=== PATIENT | male | born 2000 | race Two or more races ===

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

== ENCOUNTER 2021-06-16 20:21 | Emergency (ER) | payer OTHER, SELFPAY ==
[2021-06-16 20:23] VITALS: BP 138/82; PULSE 66; RESP 17; TEMP 36.8; O2SAT 98; BMI 32.0
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
[2021-06-16 21:51] VITALS: BP 111/75; PULSE 78; RESP 18; TEMP 36.8; O2SAT 98
== END 2021-06-16 21:56 | disposition home or self-care (01) ==
PROVIDERS: Emergency Provider Emergency Medicine
DX: S63.502A Unspecified sprain of left wrist, initial encounter (principal); V03.09XA Pedestrian with other conveyance injured in collision with car, pick-up truck or van in nontraffic accident, initial encounter; Y92.414 Local residential or business street as the place of occurrence of the external cause; Y93.55 Activity, bike riding
CPT/HCPCS: 71045; 72170; 73090; 73110; 99282

== ENCOUNTER 2021-08-07 18:00 | Emergency (ER) | payer OTHER, SELFPAY ==
[2021-08-07 18:01] VITALS: BP 131/81; PULSE 66; RESP 14; TEMP 37.1; O2SAT 98; BMI 24.1
[2021-08-07 19:01] VITALS: BP 131/81; PULSE 86; RESP 16; TEMP 36.9; O2SAT 100; BMI 24.1
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
[2021-08-07 20:28] VITALS: BP 120/82; PULSE 65; RESP 18; TEMP 36.9
== END 2021-08-07 20:30 | disposition home or self-care (01) ==
LOC: ER 18:17 → UTC 18:51
PROVIDERS: Emergency Provider Nurse Practitioner Family
DX: S51.012A Laceration without foreign body of left elbow, initial encounter (principal); Z23 Encounter for immunization; W31.89XA Contact with other specified machinery, initial encounter; Y92.89 Other specified places as the place of occurrence of the external cause
CPT/HCPCS: 12001; 90471; 90715; 96372; 99202; G0463

== ENCOUNTER 2022-06-15 01:42 | Emergency (ER) | payer OTHER, SELFPAY ==
[2022-06-15 01:44] VITALS: BP 148/81; PULSE 80; RESP 16; TEMP 36.8; O2SAT 99; BMI 25.8
--- NOTE | 2022-06-15 02:05 | ECG_ITS ---
APPROVED REPORT Exam: Resting ECG HR:62 bpm ECG Measurements Heart Rate 62 AXES IA 140 P 76 QRSd 89 QRS 82 QT 353 T 70 QTc 358 Conclusion SINUS RHYTHM EARLY REPOLARIZATION [ST ELEVATION WITH NORMALLY INFLECTED T-WAVE] BORDERLINE ECG UNCONFIRMED REPORT Electronically signed by : Mateo Lafleur MD 06/16/2022 08:03:39
[2022-06-15 02:07] LABS: Basophils # 0.1 K/mm3 (0-0.2); Eosinophils # 0.2 K/mm3 (0.0-0.4); Eosinophils % 2.4 % (0.1-12.0); Hematocrit 44.9 % (42.0-52.0); Hemoglobin 15.5 g/dL (14.1-18.0); Lymphocytes # 2.7 K/mm3 (0.7-4.5); Lymphocytes % 31.5 % (10-50); Mean Corpuscular HGB Conc 34.5 g/dL (31.8-35.4); Mean Corpuscular Hemoglobin 31.3 pg (27.0-31.2); Mean Corpuscular Volume 90.7 fl (80-94); Mean Platelet Volume 9.1 fl (7.4-10.4); Monocytes # 0.5 K/mm3 (0.1-1.0); Monocytes % 6.1 % (1.7-9.3); Platelet Count 194 K/mm3 (142-424); Red Blood Count 4.95 M/mm3 (4.60-6.20); Red Cell Distribution Width 13.2 % (11.5-17.5); White Blood Count 8.5 K/mm3 (4.8-10.8)
--- NOTE | 2022-06-15 02:11 | HMH.EDGENADL ---
ED Disposition Clinical Impression: Hypokalemia Fatigue Qualifiers: Fatigue type: chronic, unspecified Qualified Code(s): R53.82 - Chronic fatigue, unspecified Disposition: Home, Self-Care Condition on Discharge: Good Instructions: DI for Hypokalemia, DI for Muscle Weakness Additional Instructions: You were evaluated in the emergency department today. Please follow-up with your primary care provider over the next week. We are providing you with a list of primary care providers accepting patients. Make sure you stay orally hydrated. Return to the emergency department for any new or worsening symptoms. Referrals: Provider,Referral, [Primary Care Provider] - - Critical Care Critical Care Time: No Attestation: On , the high probability of a clinically significant, sudden or life threatening deterioration of the following system(s) required my full and direct attention, intervention and personal management. The time I documented below is in addition to time spent performing reported procedures but includes the following listed in this critical care notation. Medical Decision Making - Jose Guadalupe Inquiry Pt receiving controlled substance: No Vital Signs: 06/15/22 01:44 06/15/22 02:43 Temperature 98.2 F 98.1 F Temperature Source Oral Oral Pulse Rate 83 Pulse Rate [Left Radial] 80 Respiratory Rate 16 16 Blood Pressure 134/71 Blood Pressure [Right Arm] 148/81 H Blood Pressure Mean [Right Arm] 103 Blood Pressure Source [Right Arm] Automatic Cuff Blood Pressure Position Sitting Blood Pressure Position [Right Arm] Supine 02 Sat by Pulse Oximetry 99 Oxygen Delivery Method Room Air Room Air - Lab Data Lab Results 06/15/22 02:00: WBC 8.5, RBC 4.95, Hgb 15.5, Hct 44.9, MCV 90.7, MCH 31.3 H, MCHC 34.5, RDW 13.2, Plt Count 194, MPV 9.1, Neut % (Auto) 59.0, Lymph % (Auto) 31.5, Dawson % (Auto) 6.1, Eos % (Auto) 2.4, Baso % (Auto) 1.0, Neut # (Auto) 5.0, Lymph # (Auto) 2.7, Dawson # (Auto) 0.5, Eos # (Auto) 0.2, Baso # (Auto) 0.1 06/15/22 02:00: Sodium 142, Potassium 3.4 L, Chloride 105, Carbon Dioxide 29, Anion Gap 11.4, BUN 13, Creatinine 0.90, Estimated Creat Clear 132, Estimated GFR 106, Est GFR ( Amer) 128, Glucose 122 H, Calcium 9.6, Total Bilirubin 0.9, AST 35, ALT 20, Alkaline Phosphatase 83, Total Protein 7.6, Albumin 4.9, Globulin 2.7, Albumin/Globulin Ratio 1.8, TSH 1.88, Thyroxine (T4) 8.8 06/15/22 02:00: Troponin I < 0.01 06/15/22 02:19: Urine Color Yellow, Urine Appearance Cloudy, Urine pH >= 9.0 H, Ur Specific [place] 1.020, Urine Protein Negative, Urine Glucose (UA) Negative, Urine Ketones Negative, Urine Blood Negative, Urine Nitrate Negative, Urine Bilirubin Negative, Urine Urobilinogen 0.2, Ur Leukocyte Esterase Negative, Amorphous Sediment 4+ Result diagrams: 06/15/22 02:00 06/15/22 02:00 Orders (Tests/Meds): ED MEDICATIONS Discontinued Medications Generic Name Dose Route Start Last Admin Trade Name Freq PRN Reason Stop Dose Admin Potassium Chloride 40 meq 06/15/22 02:33 06/15/22 02:36 Potassium Chloride 20meq Tab PO 06/15/22 02:34 40 meq ONCE ONE Administration ORDERS Category Date Time Status ECG Request by /Chika Stat Y 06/15/22 01:56 Ordered - ECG Data Tracing #1 ECG initial impression date: 06/15/22 ECG initial impression time: 02:10 ECG normal with no acute: arrhythmias, ischemia, conduction abnormalities, chamber hypertrophy Normal Sinus Rhythm: Yes Medical Decision Narrative: In summary, this patient is a 22-year-old male with self-reported recent history of dengue fever 1 month ago presented to the emergency department for evaluation of multiple complaints, including fatigue, poor appetite, difficulty sleeping, lightheadedness, presyncope, nausea, diarrhea, urinary tract infection. Patient denies concern for sexually transmitted infection.. Differential diagnoses include anemia, hematologic malignancy, dehydration, hypokalemia, renal dy
[2022-06-15 02:14] LABS: Chloride 105 mmol/L (98-107); Potassium 3.4 mmoL/L (3.5-5.1); Sodium 142 mmol/L (136-145)
[2022-06-15 02:16] LABS: Blood Urea Nitrogen 13 mg/dl (9-20); Creatinine Clearance Estimated 132 mL/min (50-200); Estimated Glomerular Filt Rate 106 ml/min (>60); GFR (African American) 128 ML/MIN (>60)
[2022-06-15 02:17] LABS: Alanine Aminotransferase 20 U/L (12-78); Albumin Level 4.9 g/dl (3.5-5.0); Albumin/Globulin Ratio 1.8 (1.1-1.8); Alkaline Phosphatase 83 U/L (38-126); Anion Gap 11.4 mEq/L (5-15); Aspartate Amino Transferase 35 U/L (17-59); Bilirubin,Total 0.9 mg/dl (0.2-1.3); Calcium 9.6 mg/dl (8.4-10.2); Carbon Dioxide 29 mmol/L (22.0-30.0); Globulin 2.7 g/dL (1.3-3.2); Glucose 122 mg/dl (74-100); Total Protein,Serum 7.6 g/dl (6.3-8.2)
[2022-06-15 02:22] LABS: Microscopic, Urine URINE MICROSCOPIC (MICROSCOPIC)
[2022-06-15 02:26] LABS: Appearance,Urine CLOUDY (Clear); Bilirubin,Urine Negative (Negative); Blood, Urine Negative (Negative); Color,Urine YELLOW (Yellow); Glucose,Urine (UA) Negative (Negative); Ketones,Urine Negative (Negative); Leukocyte Esterase,Urine Negative (Negative); Nitrate,Urine Negative (Negative); Protein,Urine Negative (Negative); Urobilinogen,Urine 0.2 EU/dl (0.2)
[2022-06-15 02:30] LABS: PH,Urine >= 9.0 (5.0-8.5)
[2022-06-15 02:30] LABS: Troponin I < 0.01 ng/ml (0.00-0.034)
[2022-06-15 02:33] LABS: Amorphous Sediment,Urine 4+ /lpf
[2022-06-15 02:35] LABS: T4 (Thyroxine) 8.8 ug/dl (5.53-11.0)
[2022-06-15 02:43] VITALS: BP 134/71; PULSE 83; RESP 16; TEMP 36.7; O2SAT 98
[2022-06-15 02:48] LABS: Thyroid Stimulating Hormone 1.88 uIU/mL (0.465-4.68)
== END 2022-06-15 02:46 | disposition home or self-care (01) ==
PROVIDERS: Emergency Provider Emergency Medicine
DX: E87.6 Hypokalemia (principal); R53.82 Chronic fatigue, unspecified; Z79.899 Other long term (current) drug therapy; D64.9 Anemia, unspecified
CPT/HCPCS: 80053; 81001; 84436; 84443; 84484; 85025; 93005; 99283

== ENCOUNTER 2022-06-26 17:53 | Emergency (ER) | payer OTHER, SELFPAY ==
[2022-06-26 18:25] VITALS: BP 131/86; PULSE 76; RESP 18; TEMP 37.3; O2SAT 100
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
[2022-06-26 19:06] VITALS: BP 131/86; PULSE 76; RESP 18; TEMP 37.3; O2SAT 100
== END 2022-06-26 19:13 | disposition home or self-care (01) ==
PROVIDERS: Emergency Provider Nurse Practitioner
DX: U07.1 COVID-19 (principal)
CPT/HCPCS: 99212; C9803; G0463; U0003; U0005

== ENCOUNTER 2022-07-29 23:44 | Emergency (ER) | payer OTHER, SELFPAY ==
[2022-07-29 23:59] VITALS: BMI 19.3
[2022-07-30 00:02] VITALS: BP 117/81; PULSE 83; RESP 16; TEMP 36.7; O2SAT 98; BMI 19.3
[2022-07-30 00:13] LABS: Basophils # 0.1 K/mm3 (0-0.2); Basophils % 1.3 % (0.1-2.0); Eosinophils # 0.2 K/mm3 (0.0-0.4); Eosinophils % 2.6 % (0.1-12.0); Hematocrit 47.5 % (42.0-52.0); Hemoglobin 15.9 g/dL (14.1-18.0); Lymphocytes # 2.7 K/mm3 (0.7-4.5); Lymphocytes % 37.8 % (10-50); Mean Corpuscular HGB Conc 33.4 g/dL (31.8-35.4); Mean Corpuscular Hemoglobin 31.2 pg (27.0-31.2); Mean Corpuscular Volume 93.2 fl (80-94); Mean Platelet Volume 8.4 fl (7.4-10.4); Monocytes # 0.5 K/mm3 (0.1-1.0); Monocytes % 7.2 % (1.7-9.3); Neutrophils # 3.6 K/mm3 (1.8-7.8); Neutrophils % 51.1 % (37.0-80.0); Platelet Count 262 K/mm3 (142-424); Red Blood Count 5.09 M/mm3 (4.60-6.20); Red Cell Distribution Width 13.2 % (11.5-17.5); White Blood Count 7.1 K/mm3 (4.8-10.8)
[2022-07-30 00:16] LABS: Chloride 99 mmol/L (98-107); Potassium 3.5 mmoL/L (3.5-5.1); Sodium 142 mmol/L (136-145)
[2022-07-30 00:21] LABS: Alanine Aminotransferase 19 U/L (12-78); Albumin Level 5.3 g/dl (3.5-5.0); Albumin/Globulin Ratio 1.8 (1.1-1.8); Alkaline Phosphatase 77 U/L (38-126); Anion Gap 15.5 mEq/L (5-15); Aspartate Amino Transferase 33 U/L (17-59); Blood Urea Nitrogen 13 mg/dl (9-20); Calcium 8.8 mg/dl (8.4-10.2); Carbon Dioxide 31 mmol/L (22.0-30.0); Creatinine Clearance Estimated 89 mL/min (50-200); Estimated Glomerular Filt Rate 93 ml/min (>60); GFR (African American) 113 ML/MIN (>60); Globulin 2.9 g/dL (1.3-3.2); Glucose 106 mg/dl (74-100); Total Protein,Serum 8.2 g/dl (6.3-8.2)
--- NOTE | 2022-07-30 00:51 | US_ITS ---
PROCEDURE INFORMATION: Exam: US Scrotum Exam date and time: 07/30/2022 12:59 AM Age: 22 years old Clinical indication: Scrotum pain; Additional info: Lt testicular pain; PT says he has history of torsion, but has never had surgery for it TECHNIQUE: Imaging protocol: Real-time ultrasound of the scrotum and contents with color Doppler and image documentation. COMPARISON: US TESTICULAR 01/02/2020 4:28 PM FINDINGS: Right testicle: Normal. No mass. No torsion. Normal vascular flow. Right testicle measures 3.8 x 1.9 x 2.8 cm. Left testicle: Normal. No mass. No torsion. Normal vascular flow. Left testicle measures 4.2 x 2.3 x 2.9 cm. Epididymides: Normal. Scrotum: Small bilateral varicoceles superiorly. IMPRESSION: Small bilateral varicoceles. No torsion, orchitis or mass.
--- NOTE | 2022-07-30 00:51 | HMH.EDUROGM ---
Discharge Plan Disposition Patient Disposition: Home, Self-Care Prescriptions Prescriptions: New levofloxacin 500 mg tablet 500 mg PO DAILY Qty: 7 0RF No Action sertraline 50 MG tablet 50 mg PO DAILY Referrals Follow up/Referrals: Provider,MD Tanya [Primary Care Provider] - See instructions Samir Hu MD [Staff Physician] - See instructions Clinical Impressions Clinical Impression: Left testicular pain Instructions Patient Instructions: DI for Testicular Pain Discharge ED Provider: Renaldo Blackmon Male Urogenital HPI General Chief complaint: Urogenital-Male Stated complaint: Testicular pain Time Seen by Provider: 07/30/22 00:52 Mode of Arrival: Ambulatory Source of Information: Patient, Significant Other and Medical Record Limitations: No Limitations Description of Symptoms (Recalled from ER Triage Doc. by RN): LEFT TESTICULAR PAIN. PT REPORTS TWO PREVIOUS TESTICULAR TORSIONS. PT REPORTS THAT PAIN IS THE SAME PREVIOUS. History of Present Illness HPI Narrative: acute lt testicular pain which started tonight - no hx of surg but concerned about prev episodes of possible torsion MD Complaint: testicle pain and testicle swelling Onset (ago): hour(s) Duration: constant Location: left testicle Severity: moderate Reports nausea/vomiting Related Data Sexually active: Yes Home Medications Medication Instructions Recorded Confirmed sertraline 50 mg tablet 50 mg PO DAILY ANXIETY AND 06/15/22 07/30/22 DEPRESSION Previous Rx's Medication Instructions Recorded levofloxacin 500 mg tablet 500 mg PO DAILY #7 tabs 07/30/22 Allergies Allergy/AdvReac Type Severity Reaction Status Date / Time No Known Allergies Allergy Verified 01/04/20 10:13 PFSH PFSH Social History Smoking Status: Never smoker alcohol intake: never substance use type: denies use current occupational status: employed Travel in the last 8 weeks: None household members: family housing: house ROS Obtained: Yes All systems reviewed & no additional complaints except as documented Constitutional Constitutional: Denies fever(s) and Denies headache(s) Eyes Eyes: Denies eye discharge ENT Ears, Nose, Mouth, and Throat: Denies headache(s) Cardiovascular Cardiovascular: Denies chest pain with activity Respiratory Respiratory: Denies cough Gastrointestinal Gastrointestingal: Denies abdominal pain Genitourinary Male Genitourinary: Reports as per HPI, Denies hematuria, Denies penile discharge and Reports testicular pain Integumentary/Breasts Skin/Breast: Denies rash Neurologic Neurologic: Denies headache(s) Physical Exam General General appearance: alert Head Head exam: normocephalic Eye Eye exam: Present PERRL and EOMI ENT ENT exam: Present mucous membranes moist Neck Neck exam: Present trachea midline Respiratory Respiratory exam: Absent respiratory distress Cardiovascular Cardiovascular exam: Present regular rate Abdominal Exam Abdominal exam: Present soft exam: Present testicular tenderness; Absent circumcised Expanded Exam exam: Present phimosis; Absent inguinal hernia or inguinal lymphadenopathy Scrotal exam: left: testicular tenderness, testicular swelling and epididymal tenderness Extremities Exam Extremities exam: Present full ROM Back Exam Back exam: Absent CVA tenderness (L) Neurological Exam Neurological exam: Present alert, oriented X3 and CN II-XII intact Psychiatric Psychiatric exam: Present normal affect Skin Skin exam: Absent rash Medical Decision Making Medical Records Medical records reviewed: Yes I reviewed the patient's medical records. Jose Guadalupe Inquiry Pt receiving controlled substance: No Vital Signs: 07/30/22 00:02 07/30/22 01:02 Temperature 98.1 F Temperature Source Oral Pulse Rate 62 Pulse Rate [Left Radial] 83 Respiratory Rate 16 16 Blood Pressure 115/79 Blood Pressure [Right Arm] 117/81 Blood Pressure Mean [Right Arm]
[2022-07-30 01:02] VITALS: BP 115/79; PULSE 62; RESP 16; O2SAT 100
[2022-07-30 01:57] VITALS: BP 117/83; PULSE 74; RESP 16; TEMP 36.8; O2SAT 99
== END 2022-07-30 02:21 | disposition home or self-care (01) ==
PROVIDERS: Emergency Provider Emergency Medicine
DX: N50.812 Left testicular pain (principal)
CPT/HCPCS: 76870; 80053; 85025; 96361; 96374; 96375; 99284; J0696; J2405

== ENCOUNTER 2024-08-15 22:18 | Emergency (ER) | payer OTHER, SELFPAY ==
[2024-08-15 22:37] VITALS: BP 128/81; PULSE 86; RESP 16; TEMP 36.8; O2SAT 98; BMI 24.5
--- NOTE | 2024-08-15 22:39 | CT_ITS ---
PROCEDURE INFORMATION: Exam: CTA Abdomen and Pelvis With Contrast Exam date and time: 08/15/2024 11:07 PM Age: 24 years old Clinical indication: Other: Large hematochezia TECHNIQUE: Imaging protocol: Computed tomographic angiography of the abdomen and pelvis with contrast. Exam focused on the arteries. 3D rendering (Not supervised by radiologist): MIP and/or 3D reconstructed images were created by the technologist. Radiation optimization: All CT scans at this facility use at least one of these dose optimization techniques: automated exposure control; mA and/or kV adjustment per patient size (includes targeted exams where dose is matched to clinical indication); or iterative reconstruction. Contrast material: ISOVUE; Contrast volume: 80 ml; Contrast route: INTRAVENOUS (IV); COMPARISON: CR XR PELVIS 1-2V 06/16/2021 8:43 PM FINDINGS: Aorta: No aortic aneurysm. No aortic dissection. Celiac trunk and mesenteric arteries: No occlusion or significant stenosis. Renal arteries: No occlusion or significant stenosis. Right iliac arteries: No occlusion or significant stenosis. Left iliac arteries: No occlusion or significant stenosis. Liver: No mass. Gallbladder and biliary ducts: Unremarkable. No calcified stones. No ductal dilation. Pancreas: Unremarkable. No mass. No ductal dilation. Spleen: Unremarkable. No splenomegaly. Adrenal glands: Unremarkable. No mass. Kidneys and ureters: Unremarkable. No solid mass. No hydronephrosis. Stomach and bowel: Unremarkable. No obstruction. No mucosal thickening. Appendix: Not visualized. Intraperitoneal space: Unremarkable. No free air. No significant fluid collection. Lymph nodes: Unremarkable. No enlarged lymph nodes. Urinary bladder: Unremarkable. No mass. Reproductive: Unremarkable as visualized. Bones/joints: No acute fracture. Soft tissues: Unremarkable. IMPRESSION: Unremarkable CTA.
[2024-08-15 22:44] LABS: Basophils % 0.4 % (0.1-2.0); Eosinophils # 0.2 K/mm3 (0.0-0.4); Eosinophils % 2.6 % (0.1-12.0); Hematocrit 44.4 % (42.0-52.0); Lymphocytes # 1.6 K/mm3 (0.7-4.5); Lymphocytes % 19.5 % (10-50); Mean Corpuscular HGB Conc 33.8 g/dL (31.8-35.4); Mean Corpuscular Hemoglobin 30.7 pg (27.0-31.2); Mean Corpuscular Volume 90.6 fl (80-94); Mean Platelet Volume 8.3 fl (7.4-10.4); Monocytes # 0.4 K/mm3 (0.1-1.0); Monocytes % 5.4 % (1.7-9.3); Neutrophils # 5.9 K/mm3 (1.8-7.8); Neutrophils % 72.1 % (37.0-80.0); Platelet Count 193 K/mm3 (142-424); Red Cell Distribution Width 13.3 % (11.5-17.5); White Blood Count 8.1 K/mm3 (4.8-10.8)
[2024-08-15 22:48] LABS: Chloride 100 mmol/L (98-107); Sodium 136 mmol/L (136-145)
--- NOTE | 2024-08-15 22:48 | [facility].EDGENADL ---
Discharge Plan Disposition Patient Disposition: Home, Self-Care Condition: Good Prescriptions Prescriptions: No Action sertraline 50 MG tablet 50 mg PO DAILY levofloxacin 500 mg tablet 500 mg PO DAILY Qty: 7 0RF Referrals Follow up/Referrals: Fabrizio Vicente II, MD [Staff Physician] - See instructions Provider,ReferralMD [Primary Care Provider] - See instructions Activity Restrictions/Add. Instructions Additional Instructions/Restrictions: Please call to schedule follow-up with our GI doctor for further evaluation of your recurrent bloody stools. Please follow-up with your primary care provider. Please return to the emergency department if you develop any new or worsening symptoms or become concerned for your health. Clinical Impressions Clinical Impression: Blood in stool Instructions Patient Instructions: DI for Gastrointestinal Bleeding Print Language Print Language: Upper Sorbian Discharge ED Provider: Nathanael Crawley General Adult HPI <Genaro Bernal MD - Last Filed: 08/15/24 22:51> General Chief complaint: GI Bleed Stated complaint: bloody stools with clots Time Seen by Provider: 08/15/24 22:27 Mode of Arrival: Ambulatory Source of Information: Patient Limitations: No Limitations Description of Symptoms (Recalled from ER Triage Doc. by RN): pt reports passing blood in his stool that began this morning. pt reporfts this has happended one yr prior but this morning became significantly worse and began passing clots History of Present Illness HPI narrative: Please note that above description of symptoms, in this electronic medical record under categorization of recalled from ER triage doctor by RN are reflective of an initial nursing assessment, however, is not reflective of my full history and physical exam that was personally taken and clarified. Consequentially, this preceding description of symptoms, which may include the patient's categorized chief complaint in the EMR, do not reflect my personal clinical impression, and the ultimate description of history of present illness and patient stated complaints should be deferred to this section of the note. Unless stated otherwise or congruent with this section of the note, additional signs, symptoms, or incongruence should be interpreted as inaccurate with my clinical impression. Related Data Home Medications ?Medication ?Instructions ?Recorded ?Confirmed sertraline 50 mg tablet 50 mg PO DAILY ANXIETY AND 06/15/22 07/30/22 DEPRESSION Previous Rx's ?Medication ?Instructions ?Recorded levofloxacin 500 mg tablet 500 mg PO DAILY #7 tabs 07/30/22 Allergies Allergy/AdvReac Type Severity Reaction Status Date / Time No Known Allergies Allergy Verified 01/04/20 10:13 PFSH <Genaro Bernal MD - Last Filed: 08/15/24 22:51> FOR[facility]LY [facility] Disclaimer: The information contained in this section may have been updated after the patient was seen, as this information can be updated by other users. Medical History (Updated 08/15/24 @ 23:58 by Nathanael Crawley MD) Torsion, testicular Social History Smoking Status: Never smoker alcohol intake: never substance use type: denies use current occupational status: employed Travel in the last 8 weeks: None household members: family housing: house <Genaro Bernal MD - Last Filed: 08/15/24 22:51> ROS Obtained: Yes All systems reviewed & no additional complaints except as documented Physical Exam <Genaro Bernal MD - Last Filed: 08/15/24 22:51> General General appearance: alert Head Head exam: atraumatic and normocephalic Eye Eye exam: Present normal appearance, PERRL and EOMI Neck Neck exam: Present normal inspection, full ROM and trachea midline Respiratory Respiratory exam: Absent respiratory distress, wheezes, stridor, accessory muscle use or prolonged expiratory phase Cardiovascular Cardiovascular exam: Present other (Pulses equal symmetric in upper and lower extremities) Abdominal Exam Abdominal exam: Present soft; Absent distention, tenderness or pulsatile mass Extremities Exam Extremities exam: Absent edema Neurological Exam Neurological exam: Present alert, oriented X3 and CN II-XII intact; Absent motor sensory deficit Skin Skin exam: Present warm and dry; Absent diaphoresis or erythema Medical Decision Making <Genaro Bernal MD - Last Filed: 08/15/24 22:51> Medical Records Medical records reviewed: Yes I reviewed the patient's medical records. Screening: Per USPSTF and CDC recommendations, given the prevalence of disease in our region, it is our hospital?s policy to screen for HIV and viral Hepatitis for all patients aged 18 and over and those with ongoing risk factors. Jose Guadalupe Inquiry Pt receiving controlled substance: No Jose Guadalupe was queried for this patient: No Vital Signs: 08/15/24 22:37 08/15/24 23:58 Temperature 98.2 F 97.9 F Temperature Source Oral Oral Pulse Rate 74 Pulse Rate [Right] 86 Respiratory Rate 16 16 Blood Pressure 120/87 Blood Pressure [Right Arm] 128/81 Blood Pressure Mean [Right Arm] 96 Blood Pressure Source Automatic Cuff Blood Pressure Position Supine 02 Sat by Pulse Oximetry 98 Oxygen Delivery Method Room Air Room Air Lab Data Lab Results 08/15/24 22:30: WBC 8.1, RBC 4.90, Hgb 15.0, Hct 44.4, MCV 90.6, MCH 30.7, MCHC 33.8, RDW 13.3, Plt Count 193, MPV 8.3, Neut % (Auto) 72.1, Lymph % (Auto) 19.5, [place] % (Auto) 5.4, Eos % (Auto) 2.6, Baso % (Auto) 0.4, Neut # (Auto) 5.9, Lymph # (Auto) 1.6, [place] # (Auto) 0.4, Eos # (Auto) 0.2, Baso # (Auto) 0.0, ESR 9, PT 10.3, INR 0.91, APTT 25.1, Sodium 136, Potassium 3.5, Chloride 100, Carbon Dioxide 28, Anion Gap 11.5, BUN 12, Creatinine 1.00, Estimated Creat Clear 111, Estimated GFR 92, Est GFR ( Amer) 111, Glucose 97, Calcium 9.2, Total Bilirubin 0.9, AST 34, ALT 29, Alkaline Phosphatase 84, C-Reactive Protein 4.3 H, Total Protein 7.9, Albumin 5.0, Globulin 2.9, Albumin/Globulin Ratio 1.7 08/15/24 23:50: Stl Aeromonas (PCR) Not detected, Stl C. cayetanensis PCR Not detected, Stool Rotavirus (PCR) Not detected, Stl Adenov F 40/41 PCR Not detected, Stool Astrovirus (PCR) Not detected, Stool Campylobacter PCR Not detected, Stl C.difficile Tox PCR Not detected, Stool Cryptosporidium PCR Not detected, Stl E.coli Shiga Tox PCR Not detected, Stool E coli O157 PCR Not detected, Stl Enterotoxigenic E PCR Not detected, Stool EPEC (PCR) Not detected, Stool EAEC (PCR) Not detected, Stl E. histolytica PCR Not detected, Stool Giardia Lamblia PCR Not detected, Stool Salmonella PCR Not detected, Stool Sapovirus (PCR) Not detected, Stl P. shigelloides PCR Not detected, Stl Shigella/EIEC PCR Not detected, St Y.enterocolitica PCR Not detected, Stool Vibrio (PCR) Not detected, Stl Vibrio cholerae PCR Not detected, Stl Norovirus GI/GII PCR Not detected 08/15/24 22:30 08/15/24 22:30 Orders (Tests/Meds): ED MEDICATIONS Discontinued Medications Generic Name Dose Route Start Last Admin Trade Name Carmelita PRN Reason Stop Dose Admin Iopamidol 80 ml 08/15/24 23:11 08/15/24 23:12 Iopamidol-370 (76%);100ml Bottle IV 08/15/24 23:12 80 ml ONCE ONE Administration Sodium Chloride 50 ml 08/15/24 23:11 08/15/24 23:12 0.9 % Sodium Chloride 50 Ml Vial IV 08/15/24 23:12 50 ml ONCE ONE Administration Sodium Chloride 10 ml 08/15/24 23:11 08/15/24 23:12 Sodium Chloride 0.9% 10ml Syr (Rad Only) IV 09/14/24 23:10 10 ml NEEDED PRN Administration Maintain IV Site ORDERS Category Date Time Status CT angio abdomen pelvis Stat Cat Scan 08/15/24 22:39 Completed CRP [C-Reactive Protein] Stat Lab 08/15/24 22:30 Completed Complete Blood Count Auto Diff Stat Lab 08/15/24 22:30 Completed Comprehensive Metabolic Panel Stat Lab 08/15/24 22:30 Completed Diarrhea 6-11 Panel, Cdiff PCR Stat Lab 08/15/24 23:50 Completed ESR [Erythrocyte Sedimentation Rate] Stat Lab 08/15/24 22:30 Completed PT INR [Prothrombin Time INR] Stat Lab 08/15/24 22:30 Completed PTT [Activated Partial Thrombo Time] Stat Lab 08/15/24 22:30 Completed Medical Decision Narrative: Otherwise healthy 24-year-old male presenting with bright red blood per rectum. Patient states that he has had bright red blood per rectum on and off for the last 2 years. States that today, around 11 AM on 08/15, patient started having bright red blood and clots per rectum. He has had 3 large-volume bloody bowel movements since that time. They are cathartic, he has a cramping sensation and a fullness, in his rectum which is relieved by having bowel movement. Otherwise, no pain or discomfort including perirectal. No lightheadedness, shortness of breath, numbness, tingling, weakness, vomiting, fevers, chills, weight loss, or any systemic signs or symptoms. Patient denies any family history of colon cancers, IBD, recent travel, any other exposures. He does not take anticoagulation.. History was obtained via conversation with patient. On arrival, patient hemodynamically stable, alert, oriented x4, appropriate, GCS 15, moving all extremities spontaneously, pupils equal and reactive to light. Full physical exam performed and significant for well-appearing male no acute distress. Abdomen is soft, nontender, nondistended. No flank tenderness. No overlying skin changes. Bowel sounds in all quadrants. Rectal exam deferred given report of bright red blood, stool sample to be collected. Differential includes AVM, diverticulosis, polyp, malignancy, IBD, among others. Patient placed on continuous cardiac monitoring and continuous pulse ox with initial blood pressure 128/81, heart rate 6, saturation 98% on room air. Independent interpretation of workup demonstrates nonactionable CBC with hemoglobin 15. Rest of workup including labs and CT angiogram of the abdomen pelvis, stool sample pending at time of handoff to oncoming physician. Vegetable Farmer disclaimer Much of this encounter note is an electronic graphics production specialist spoken language to printed text. Electronic graphics production specialist of the spoken language may permit errors. Although I have reviewed the note, some errors may still exist. <Nathanael Crawley MD - Last Filed: 08/16/24 04:09> Vital Signs: 08/15/24 22:37 08/15/24 23:58 Temperature 98.2 F 97.9 F Temperature Source Oral Oral Pulse Rate 74 Pulse Rate [Right] 86 Respiratory Rate 16 16 Blood Pressure 120/87 Blood Pressure [Right Arm] 128/81 Blood Pressure Mean [Right Arm] 96 Blood Pressure Source Automatic Cuff Blood Pressure Position Supine 02 Sat by Pulse Oximetry 98 Oxygen Delivery Method Room Air Room Air Lab Data Lab Results 08/15/24 22:30: WBC 8.1, RBC 4.90, Hgb 15.0, Hct 44.4, MCV 90.6, MCH 30.7, MCHC 33.8, RDW 13.3, Plt Count 193, MPV 8.3, Neut % (Auto) 72.1, Lymph % (Auto) 19.5, [place] % (Auto) 5.4, Eos % (Auto) 2.6, Baso % (Auto) 0.4, Neut # (Auto) 5.9, Lymph # (Auto) 1.6, [place] # (Auto) 0.4, Eos # (Auto) 0.2, Baso # (Auto) 0.0, ESR 9, PT 10.3, INR 0.91, APTT 25.1, Sodium 136, Potassium 3.5, Chloride 100, Carbon Dioxide 28, Anion Gap 11.5, BUN 12, Creatinine 1.00, Estimated Creat Clear 111, Estimated GFR 92, Est GFR ( Amer) 111, Glucose 97, Calcium 9.2, Total Bilirubin 0.9, AST 34, ALT 29, Alkaline Phosphatase 84, C-Reactive Protein 4.3 H, Total Protein 7.9, Albumin 5.0, Globulin 2.9, Albumin/Globulin Ratio 1.7 08/15/24 23:50: Stl Aeromonas (PCR) Not detected, Stl C. cayetanensis PCR Not detected, Stool Rotavirus (PCR) Not detected, Stl Adenov F 40/41 PCR Not detected, Stool Astrovirus (PCR) Not detected, Stool Campylobacter PCR Not detected, Stl C.difficile Tox PCR Not detected, Stool Cryptosporidium PCR Not detected, Stl E.coli Shiga Tox PCR Not detected, Stool E coli O157 PCR Not detected, Stl Enterotoxigenic E PCR Not detected, Stool EPEC (PCR) Not detected, Stool EAEC (PCR) Not detected, Stl E. histolytica PCR Not detected, Stool Giardia Lamblia PCR Not detected, Stool Salmonella PCR Not detected, Stool Sapovirus (PCR) Not detected, Stl P. shigelloides PCR Not detected, Stl Shigella/EIEC PCR Not detected, St Y.enterocolitica PCR Not detected, Stool Vibrio (PCR) Not detected, Stl Vibrio cholerae PCR Not detected, Stl Norovirus GI/GII PCR Not detected Orders (Tests/Meds): ED MEDICATIONS Discontinued Medications Generic Name Dose Route Start Last Admin Trade Name Freq PRN Reason Stop Dose Admin Iopamidol 80 ml 08/15/24 23:11 08/15/24 23:12 Iopamidol-370 (76%);100ml Bottle IV 08/15/24 23:12 80 ml ONCE ONE Administration Sodium Chloride 50 ml 08/15/24 23:11 08/15/24 23:12 0.9 % Sodium Chloride 50 Ml Vial IV 08/15/24 23:12 50 ml ONCE ONE Administration Sodium Chloride 10 ml 08/15/24 23:11 08/15/24 23:12 Sodium Chloride 0.9% 10ml Syr (Rad Only) IV 09/14/24 23:10 10 ml NEEDED PRN Administration Maintain IV Site ORDERS Category Date Time Status CT angio abdomen pelvis Stat Cat Scan 08/15/24 22:39 Completed CRP [C-Reactive Protein] Stat Lab 08/15/24 22:30 Completed Complete Blood Count Auto Diff Stat Lab 08/15/24 22:30 Completed Comprehensive Metabolic Panel Stat Lab 08/15/24 22:30 Completed Diarrhea 6-11 Panel, Cdiff PCR Stat Lab 08/15/24 23:50 Completed ESR [Erythrocyte Sedimentation Rate] Stat Lab 08/15/24 22:30 Completed PT INR [Prothrombin Time INR] Stat Lab 08/15/24 22:30 Completed PTT [Activated Partial Thrombo Time] Stat Lab 08/15/24 22:30 Completed Medical Decision Narrative: Otherwise healthy 24-year-old male presenting with bright red blood per rectum. Patient states that he has had bright red blood per rectum on and off for the last 2 years. States that today, around 11 AM on 08/15, patient started having bright red blood and clots per rectum. He has had 3 large-volume bloody bowel movements since that time. They are cathartic, he has a cramping sensation and a fullness, in his rectum which is relieved by having bowel movement. Otherwise, no pain or discomfort including perirectal. No lightheadedness, shortness of breath, numbness, tingling, weakness, vomiting, fevers, chills, weight loss, or any systemic signs or symptoms. Patient denies any family history of colon cancers, IBD, recent travel, any other exposures. He does not take anticoagulation.. History was obtained via conversation with patient. On arrival, patient hemodynamically stable, alert, oriented x4, appropriate, GCS 15, moving all extremities spontaneously, pupils equal and reactive to light. Full physical exam performed and significant for well-appearing male no acute distress. Abdomen is soft, nontender, nondistended. No flank tenderness. No overlying skin changes. Bowel sounds in all quadrants. Rectal exam deferred given report of bright red blood, stool sample to be collected. Differential includes AVM, diverticulosis, polyp, malignancy, IBD, among others. Patient placed on continuous cardiac monitoring and continuous pulse ox with initial blood pressure 128/81, heart rate 6, saturation 98% on room air. Independent interpretation of workup demonstrates nonactionable CBC with hemoglobin 15. Rest of workup including labs and CT angiogram of the abdomen pelvis, stool sample pending at time of handoff to oncoming physician. Vegetable Farmer disclaimer Much of this encounter note is an electronic graphics production specialist spoken language to printed text. Electronic graphics production specialist of the spoken language may permit errors. Although I have reviewed the note, some errors may still exist. Misbah ASHER: I assumed care of the patient at the time of handoff from the prior provider. On reassessment patient bradley hemodynamically stable, no longer having any blood per rectum. He was able to give us a very small stool sample that was not grossly bloody. This was sent off. Laboratory results are nonactionable including normal inflammatory markers, hemoglobin, renal function. CT angiogram was independently interpreted by me and showed no evidence of active GI bleeding, no colitis, no obvious lesion, no obstruction etc. Extensive and interactive discussion was had with patient regarding his presentation. No evidence of emergent pathology at this time. Presentation may be related to acute GI infection, internal hemorrhoids, or other chronic condition. Given he has had multiple episodes of bloody stools in the past, I recommended he follow-up with our GI doctor. He was given the clinics number and instructed to follow-up. He was discharged in stable condition with stool sample pending. After discharge, stool sample returned negative. Critical Care <Genaro Bernal MD - Last Filed: 08/15/24 22:51> Critical Care Time Critical Care Time: No
[2024-08-15 22:49] LABS: Potassium 3.5 mmoL/L (3.5-5.1)
[2024-08-15 22:51] LABS: Alanine Aminotransferase 29 U/L (12-78); Albumin/Globulin Ratio 1.7 (1.1-1.8); Alkaline Phosphatase 84 U/L (38-126); Anion Gap 11.5 mEq/L (5-15); Aspartate Amino Transferase 34 U/L (17-59); Bilirubin,Total 0.9 mg/dl (0.2-1.3); Blood Urea Nitrogen 12 mg/dl (9-20); Carbon Dioxide 28 mmol/L (22.0-30.0); Creatinine Clearance Estimated 111 mL/min (50-200); Estimated Glomerular Filt Rate 92 ml/min (>60); GFR (African American) 111 ML/MIN (>60); Globulin 2.9 g/dL (1.3-3.2); Total Protein,Serum 7.9 g/dl (6.3-8.2)
[2024-08-15 22:52] LABS: Calcium 9.2 mg/dl (8.4-10.2); Glucose 97 mg/dl (74-100)
[2024-08-15 22:54] LABS: Activated Partial Thrombo Time 25.1 seconds (22.8-30.6); INR 0.91 (0.9-1.1); Prothrombin Time 10.3 seconds (10.1-12.5)
[2024-08-15 22:58] LABS: C-Reactive Protein 4.3 mg/L (0-4)
[2024-08-15] MEDS: 0.9 % SODIUM CHLORIDE 50 ML VIAL IV (23:12)
[2024-08-15] MEDS: IOPAMIDOL-370 (76%);100ML BOTTLE 80 ML IV (23:12)
[2024-08-15] MEDS: SODIUM CHLORIDE 0.9% 10ML SYR (RAD ONLY) 10 ML IV (23:12)
[2024-08-15 23:16] LABS: Erythrocyte Sedimentation Rate 9 mm/hr (0-15)
[2024-08-15 23:52] LABS: Adenovirus F 40/41, stool Not Detected (NotDetected); Astrovirus Not Detected (NotDetected); Campylobacter Not Detected (NotDetected); Clostridium Difficile A/B, PCR Not Detected (NotDetected); Cryptosporidium Not Detected (NotDetected); Cyclospora Cayetanesis Not Detected (NotDetected); Entamoeba histolytica Not Detected (NotDetected); Enteroaggregative E coli Not Detected (NotDetected); Enteropathogenic E coli Not Detected (NotDetected); Enterotoxigenic E coli Not Detected (NotDetected); Giardia lamblia Not Detected (NotDetected); Norovirus Not Detected (NotDetected); Plesimonas Shigalloides, PCR Not Detected (NotDetected); Rotavirus A Not Detected (NotDetected); Salmonella, PCR Not Detected (NotDetected); Sapovirus Not Detected (NotDetected); Shiga-like toxin E coli Not Detected (NotDetected); Shigella Enterovasive E coli Not Detected (NotDetected); Vibrio Cholerae Not Detected (NotDetected); Vibrio, PCR Not Detected (NotDetected); Yersinia Entercolitica, PCR Not Detected (NotDetected)
[2024-08-15 23:58] VITALS: BP 120/87; PULSE 74; RESP 16; TEMP 36.6; O2SAT 100
== END 2024-08-16 00:03 | disposition home or self-care (01) ==
PROVIDERS: Emergency Medicine; Emergency Provider Emergency Medicine
DX: K92.1 Melena (principal)
CPT/HCPCS: 74174; 80053; 85025; 85610; 85651; 85730; 86140; 87506; 99284; Q9967